=== PATIENT | male | born 1955 | race Caucasian/White ===

== ENCOUNTER 2018-04-08 08:39 | Day surgery (SDC) | payer OTHER ==
[~2018-04-08] VITALS: Ht 185.4 cm; Wt 101.0 kg
[2018-04-08] MEDS ORDERED: TAMBOCOR50 MG PO (09:09)
[2018-04-08] MEDS ORDERED: COREG 25MG25 MG/TAB PO (09:09)
[2018-04-08 09:10] VITALS: BP 127/97; PULSE 90; TEMP 98.4
[2018-04-08] MEDS ORDERED: ELIQUIS 5MG PO (09:10)
[2018-04-08] MEDS ORDERED: ASPIRIN E.C. 8181 MG PO (09:10)
[2018-04-08] MEDS ORDERED: FLONASEALLERGY NS (09:11)
[2018-04-08] MEDS ORDERED: NEXIUM 40MG40 MG PO (09:11)
[2018-04-08] MEDS ORDERED: 00186-0370-20 IH (09:11)
[2018-04-08] MEDS ORDERED: FOLIC ACID0.4 MG PO (09:12)
[2018-04-08] MEDS ORDERED: ATIVAN 1MG T1 MG/TAB PO (09:14)
[2018-04-08] MEDS ORDERED: LEVOXYL0.1 MG PO (09:14)
[2018-04-08] MEDS ORDERED: MAG-OX 400400 MG/TAB PO (09:15)
[2018-04-08] MEDS ORDERED: K-DUR 10 MEQ T10 MEQ PO (09:15)
[2018-04-08] MEDS ORDERED: LIPITOR 10MG10 MG PO (09:17)
[2018-04-08] MEDS ORDERED: XANAX 1MG1 MG PO (09:17)
[2018-04-08] MEDS ORDERED: LASIX 20MG TABL20 MG PO (09:18)
[2018-04-08] MEDS ORDERED: SINGULAIR 110 MG/TAB PO (09:19)
[2018-04-08] MEDS ORDERED: IMITREX 6M6 MG/0.5 M SQ (09:19)
[2018-04-08] MEDS ORDERED: B-121000 MCG PO (09:20)
[2018-04-08 09:50] LABS: HEMOGLOBIN 11.6 g/dl (13.5-18.0); MEAN CELL VOLUME 102 fl (80.0-100.0); MEAN CORPUSCULAR HEMOGLOBIN 34 pg (27.0-31.0); MEAN CORPUSCULAR HGB CONC 33 g/dl (33.0-37.0); MEAN PLATELET VOLUME 9.3 fl (7.4-10.4); PLATELET COUNT 113 K/mm3 (130-400); RED BLOOD COUNT 3.43 M/mm3 (4.20-5.60); REDCELL DISTRIBUTION WIDTH-CV 13.2 % (11.5-14.5)
[2018-04-08 10:03] LABS: CALCIUM 8.8 mg/dL (8.4-10.2); CREATININE, serum 0.96 mg/dL (0.66-1.25); POTASSIUM 3.2 mmol/L (3.4-5.0)
[2018-04-08 10:05] LABS: INR 1.8 (0.8-3.0); PROTHROMBIN TIME 20.7 SECONDS (9.7-12.8)
[2018-04-08 11:10] VITALS: BP 127/88; PULSE 80
--- NOTE | 2018-04-08 11:10 | NUR ---
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 CV successful. Pt resting well, sister at bedside.
[2018-04-08 11:25] VITALS: BP 133/94; PULSE 83
[2018-04-08 11:40] VITALS: BP 135/94; PULSE 79; TEMP 98.3
[2018-04-08 11:55] VITALS: BP 123/89; PULSE 84
--- NOTE | 2018-04-08 11:55 | NUR ---
Pt has ambulated, voided and myra PO intake s n/v. PIV removed from L FA with catheter intact.
--- NOTE | 2018-04-08 12:10 | NUR ---
Pt discharged per w/c by nurse with sister.
== END 2018-04-08 12:47 | disposition home or self-care (01) ==
LOC: COL.CAR 08:39
PROVIDERS: Internal Medicine Cardiovascular Disease
DX: I48.1 Persistent atrial fibrillation (principal); I42.0 Dilated cardiomyopathy; E78.5 Hyperlipidemia, unspecified; G47.33 Obstructive sleep apnea (adult) (pediatric); E66.3 Overweight; F41.9 Anxiety disorder, unspecified; I11.0 Hypertensive heart disease with heart failure; I50.9 Heart failure, unspecified; F32.9 Major depressive disorder, single episode, unspecified; F10.10 Alcohol abuse, uncomplicated; K21.9 Gastro-esophageal reflux disease without esophagitis; G43.909 Migraine, unspecified, not intractable, without status migrainosus; E03.9 Hypothyroidism, unspecified; Z79.01 Long term (current) use of anticoagulants; Z79.82 Long term (current) use of aspirin; Z79.51 Long term (current) use of inhaled steroids; Z83.3 Family history of diabetes mellitus; Z88.8 Allergy status to other drugs, medicaments and biological substances
CPT/HCPCS: J2704; J7030